=== PATIENT | male | born 2000 | race Caucasian/White ===

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

== ENCOUNTER 2020-11-21 11:14 | Emergency (ER) | payer BC, OTHER ==
[~2020-11-21] VITALS: Ht 177.8 cm; Wt 59.0 kg
[~2020-11-21 11:14] MED LIST: DOXYCYCLINE 10100 MG PO; ZOFRAN ODT4 M1 PO
[2020-11-21 11:18] VITALS: BP 127/81
== END 2020-11-21 12:16 | disposition home or self-care (01) ==
LOC: ER 11:14
DX: U07.1 COVID-19 (principal); F17.210 Nicotine dependence, cigarettes, uncomplicated